=== PATIENT | male | born 1990 | race Caucasian/White ===

== ENCOUNTER 2019-04-17 14:26 | Emergency (ER) | payer SELFPAY ==
[~2019-04-17] VITALS: Ht 190.5 cm; Wt 86.2 kg
[2019-04-17 14:46] VITALS: BP 123/87
--- NOTE | 2019-04-17 15:38 | RAD ---
EXAM: Left knee, 3 views. HISTORY: Twisting injury. COMPARISON: None. FINDINGS: 3 views of the left knee are obtained. There is no fracture, dislocation or subluxation. There is a small joint effusion. IMPRESSION: No acute osseous finding. Electronically signed by: Sultana Marie MD (04/17/2019 3:35 PM) [facility]
--- NOTE | 2019-04-17 15:52 | PHYS DOC ---
Past Medical History Past Medical History: No Pertinent History Past Surgical History: No Surgical History Alcohol Use: Occasionally Drug Use: None Adult General Chief Complaint Chief Complaint: KNEE INJURY HPI HPI Patient is a 28 year old male patient who presents to the ED today complaining of 8 out of 10 sharp left knee pain that began at 1 PM today while working at [employer]. Patient states he twisted his knee wrong. Patient denies falling. States the pain is worse on flexion of the knee. Denies falling. Review of Systems Review of Systems Constitutional: Denies fever or chills [] : Denies dysuria or hematuria [] Musculoskeletal: Reports left knee pain Integument: Denies rash or skin lesions [] Neurologic: Denies headache, focal weakness or sensory changes [] All other systems were reviewed and found to be within normal limits, except as documented in this note. Allergies Allergies Allergies Coded Allergies Type Severity Reaction Last Updated Verified No Known Drug Allergies 04/17/19 No Physical Exam Physical Exam Constitutional: Well developed, well nourished, no acute distress, non-toxic appearance. [] Skin: Warm, dry, no erythema, no rash. [] Back: No tenderness, no CVA tenderness. [] Extremities: Left knee with no obvious deformity. Tenderness on palpation of posterior aspect of the knee. Full passive range of motion to the left knee. +2 left pedal pulse. Cap refill less than 2 seconds the left toes. Sensation intact to the left lower extremity. Neurologic: Alert and oriented X 3, normal motor function, normal sensory function, no focal deficits noted. [] Psychologic: Affect normal, judgement normal, mood normal. [] Current Patient Data Vital Signs Vital Signs Date Time Temp Pulse Resp B/P (MAP) Pulse Ox O2 Delivery O2 Flow Rate FiO2 04/17/19 14:46 98.8 82 16 123/87 (99) 98 Room Air 98.8 EKG EKG [] Radiology/Procedures Radiology/Procedures []PROCEDURE: KNEE LEFT 3V EXAM: Left knee, 3 views. HISTORY: Twisting injury. COMPARISON: None. FINDINGS: 3 views of the left knee are obtained. There is no fracture, dislocation or subluxation. There is a small joint effusion. IMPRESSION: No acute osseous finding. Electronically signed by: Zuly Flor MD (04/17/2019 3:35 PM) [place] [id number] DICTATED and SIGNED BY: ZULY FLOR MD DATE: 04/17/19 1535 Course & Med Decision Making Course & Med Decision Making Pertinent Labs and Imaging studies reviewed. (See chart for details) This is a 28-year-old male patient presenting to the ED today with left knee pain that began today after he twisted his knee. Left knee x-rays are negative for any acute findings. Braxton bandage applied to the left knee by the radiation / chemistry technician, neurovascular exam is intact. Ice elevation encouraged. Follow-up with orthopedic doctor in 1-2 weeks. Dragon Disclaimer Dragon Disclaimer This electronic medical record was generated, in whole or in part, using a voice recognition dictation system. Departure Departure Impression: Primary Impression: Sprain of left knee Disposition: 01 HOME, SELF-CARE Condition: STABLE Referrals: ROVERTO FRIEDMAN MD (PCP) MORIAH ROMAN MD follow up in 1-2 weeks Patient Instructions: Knee Sprain, [id number] Additional Instructions: You were evaluated in the emergency room for left knee pain your left knee x- rays are negative for any acute findings. Try to ice and elevate the extremity. Wear the Braxton bandage provided as tolerated and needed. You can take [id number] pain relievers as needed. Follow-up with your own doctor or the provided orthopedic doctor in 1-2 weeks. Problem Qualifiers Primary Impression: Sprain of left knee Encounter type: initial encounter Involved ligament of knee: unspecified ligament Qualified Codes: S83.92XA - Sprain of unspecified site of left knee, initial encounter NIDIA STEVENS APPLIED EXERCISE PHYSIOLOGIST Apr 17, 2019 15:52
== END 2019-04-17 16:27 | disposition home or self-care (01) ==
LOC: ER 14:26
DX: S83.92XA Sprain of unspecified site of left knee, initial encounter (principal); X58.XXXA Exposure to other specified factors, initial encounter; Y93.89 Activity, other specified; Y92.89 Other specified places as the place of occurrence of the external cause; Y99.0 Civilian activity done for income or pay
CPT/HCPCS: 73562; 99284